=== PATIENT | female | born 1955 | race Caucasian/White ===

== ENCOUNTER → 2021-08-11 | Outpatient (CLI) | payer MEDICARE ==
[~2021-08-11] MED LIST: HOLD METFORMIN - RECEIVED CONTRAST 20 ML VIAL IV SCH; IOHEXOL 350 MG/ML 100 ML (OMNIPAQUE 350) VIAL IV ONE; NS 100 ML (IVPB) BAG IV ONE
[2021-08-11 13:58] LABS: CREATININE SERUM 0.8 MG/DL (0.60-1.30)
--- NOTE | 2021-08-11 15:04 | Diagnostic Imaging Report ---
PROCEDURE: CT abdomen and pelvis with and without contrast. TECHNIQUE: Precontrast acquisitions were acquired through the abdomen and pelvis. Multiple contiguous axial images were obtained through the abdomen and pelvis after the administration of intravenous contrast. Auto Exposure Controls were utilized during the CT exam to meet ALARA standards for radiation dose reduction. INDICATION: Bladder cancer. COMPARISON: No prior studies are available for comparison. FINDINGS: Imaging through the lung bases does show a 9 mm nodule in the right lower lobe. It does contain some central higher density and this could represent a partially calcified granuloma. No discrete liver mass is identified. The gallbladder is unremarkable. No biliary duct dilatation is seen. Pancreas and spleen are unremarkable. No adrenal mass is detected. No renal calculi are identified. There is no hydronephrosis. The renal collecting systems, ureters, and bladder are unremarkable. No mass is identified. Aorta is heavily calcified but nonaneurysmal. The bowel loops are normal in caliber. There appears to be diverticulosis of the sigmoid but no evidence of acute diverticulitis. The uterus is unremarkable. No abdominal or pelvic lymphadenopathy is seen. Bony structures show spondylolisthesis of L4 on L5 with bilateral pars defects noted. IMPRESSION: 1. Uncomplicated diverticulosis. 2. Unremarkable CT of the urinary tracts. No calculi, mass or hydronephrosis is seen. Dictated by: Dictated on workstation # [id number]
== END ==
LOC: RAD 13:26
PROVIDERS: ATTEND Urology
DX: C67.0 Malignant neoplasm of trigone of bladder (principal); K57.30 Diverticulosis of large intestine without perforation or abscess without bleeding
CPT/HCPCS: 36415; 74178; 82565; 84520

== ENCOUNTER → 2022-05-11 | Outpatient (CLI) | payer MEDICARE, OTHER ==
[~2022-05-11] VITALS: Ht 155 cm; Wt 72.7 kg
[~2022-05-11] MED LIST changes: +ACETAMINOPHEN 500 MG TAB (TYLENOL) PO PRN; +BEBTELOVIMAB 175 MG/2 ML VIAL IV ONE; +EPINEPHrine INJECTION 1 MG/ML AMP IM PRN; -HOLD METFORMIN - RECEIVED CONTRAST 20 ML VIAL IV SCH; -IOHEXOL 350 MG/ML 100 ML (OMNIPAQUE 350) VIAL IV ONE; -NS 100 ML (IVPB) BAG IV ONE; +ONDANSETRON 4 MG/2 ML (SDV) Z0FRAN IV PRN; +diphenhydrAMINE 50 MG/ML INJ (BENADRYL) IV PRN
[2022-05-11 09:31] VITALS: BP 124/62
[2022-05-11 09:35] VITALS: BP 124/62
[2022-05-11 10:30] VITALS: BP 125/67
== END ==
LOC: INFUSION 08:59
PROVIDERS: ATTEND Internal Medicine
DX: U07.1 COVID-19 (principal)